=== PATIENT | male | born 1995 | race Caucasian/White ===

== ENCOUNTER → 2019-03-04 | Outpatient (CLI) | payer BC ==
--- NOTE | 2019-03-04 19:03 | RADIOLOGY REPORT (SQ) ---
EXAM DESCRIPTION: VENOUS UNILATERAL UPPER COMPLETED DATE/TIME: 03/04/2019 6:44 pm REASON FOR STUDY: PHLEBITIS I80.9 PHLEBITIS AND THROMBOPHLEBITIS OF UNSPECIFIED SITE COMPARISON: None. TECHNIQUE: Dynamic and static lopes scale and color images acquired of the left arm venous system. Se lected spectral images acquired with additional compression and augmentation maneuvers. The contralat eral subclavian vein and internal jugular vein were also imaged. Images stored on PACS. LIMITATIONS: Cephalic vein not visualized above the level of the elbow. FINDINGS: INTERNAL JUGULAR VEIN: Normal phasicity, compression, augmentation. No visualized echogeni c material on lopes scale. No defects on color images. Comparison opposite side normal. SUBCLAVIAN VEIN: Normal compression, augmentation. No visualized echogenic material on lopes scale. No defects on color images. AXILLARY VEIN: Normal compression, augmentation. No visualized echogenic material on lopes scale. No d efects on color images. BRACHIAL VEIN: Normal compression, augmentation. No visualized echogenic material on lopes scale. No d efects on color images. BASILIC VEIN: Normal compression, augmentation. No visualized echogenic material on lopes scale. No de fects on color images. CEPHALIC VEIN: Normal compression, augmentation. No visualized echogenic material on lopes scale. No d efects on color images. OTHER: No other significant finding. CONTRALATERAL SUBCLAVIAN VEIN AND INTERNAL JUGULAR VEIN: Normal phasicity, compression and augmentation. No visualized echogenic material on lopes scale. No de fects on color images. IMPRESSION: NO EVIDENCE DVT LEFT ARM. TECHNICAL DOCUMENTATION: JOB ID: [id number] [id number] 2010 [employer]- All Rights Reserved Reading location - IP/workstation name: [email or web address]
== END ==
LOC: RAD 16:50
PROVIDERS: ATTEND Physician Assistant
DX: I80.9 Phlebitis and thrombophlebitis of unspecified site (principal)
CPT/HCPCS: 93971

== ENCOUNTER 2019-11-18 18:50 | Emergency (ER) | payer OTHER, BC ==
[2019-11-18 18:57] VITALS: BP 131/68
[2019-11-18] MEDS ORDERED: IBUPROFEN 600 MG TABLET PO ONE (20:01)
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
== END 2019-11-18 20:24 | disposition home or self-care (01) ==
LOC: ER 18:50
DX: M54.5 Low back pain (principal); V87.7XXA Person injured in collision between other specified motor vehicles (traffic), initial encounter; Z87.891 Personal history of nicotine dependence
CPT/HCPCS: 99283